=== PATIENT | male | born 2000 ===

== ENCOUNTER 2020-01-12 22:41 | Inpatient (IN) | payer SELFPAY ==
[2020-01-13] MEDS ORDERED: Ondansetron PF 4 MG/2 ML Vial IVP PRN (01:49)
[2020-01-13] MEDS ORDERED: Morphine 4 MG/ML VIAL SLOW IVP PRN (01:49)
[2020-01-13 01:50] VITALS: BMI 20.6
[2020-01-13] MEDS: Sodium Chloride 0.9% 1,000 ML IV SCH ×2 (02:14→10:10)
[2020-01-13] MEDS: Piperacillin/Tazobactam 3.375 GM in Sodium Chloride 0.9% 100 ML IVPB SCH ×2 (06:30→12:00)
[2020-01-13] MEDS ORDERED: Glycopyrrolate 0.2 MG/ML 5 ML SYRINGE ONE (10:31)
[2020-01-13] MEDS ORDERED: Lidocaine 1% PF 5 ML VIAL ONE (10:31)
[2020-01-13] MEDS ORDERED: Ondansetron PF 4 MG/2 ML Vial ONE (10:31)
[2020-01-13] MEDS ORDERED: Rocuronium Bromide 10 MG/ML (10ML VIAL) ONE (10:31)
[2020-01-13] MEDS ORDERED: Ketorolac Tromethamine 30 MG/ML VIAL ONE (10:31)
[2020-01-13] MEDS ORDERED: Dexamethasone 20 MG/5 ML VIAL ONE (10:31)
[2020-01-13] MEDS ORDERED: Succinylcholine Chloride 20 MG/ML 10 ml SYRINGE FS ONE (10:31)
[2020-01-13] MEDS ORDERED: PROPOFOL 200 MG/20 ML VIAL ONE (10:31)
[2020-01-13] MEDS ORDERED: Fentanyl 100 MCG/2 ML VIAL ONE (11:00)
[2020-01-13] MEDS ORDERED: HYDROmorphone 0.5 MG/0.5 ML SYRINGE ONE (11:00)
[2020-01-13] MEDS ORDERED: Bupivacaine 0.25% HCL 30 ML VIAL ONE (11:04)
[2020-01-13] MEDS ORDERED: EPINEPHrine 1 MG/ML AMP ONE (11:04)
--- NOTE | 2020-01-13 11:14 | HP ---
CHIEF COMPLAINT: Right lower quadrant abdominal pain. HISTORY OF PRESENT ILLNESS: The patient is a 19-year-old male, with a 24-hour history of right lower quadrant pain associated with nausea. No vomiting. No fever. CT scan showed appendicitis. PAST MEDICAL HISTORY: Otherwise, healthy. PAST SURGICAL HISTORY: He has had a previous knee surgery on the right side. MEDICATIONS: No medications. ALLERGIES: NO KNOWN DRUG ALLERGIES. SOCIAL HISTORY: He is a student. No tobacco or alcohol. FAMILY HISTORY: Noncontributory. PHYSICAL EXAMINATION: GENERAL: Well-developed, well-nourished male, in no apparent distress. HEENT: Unremarkable. LUNGS: Clear. HEART: Regular rate and rhythm. ABDOMEN: Soft. He is tender in the right lower quadrant. DIAGNOSTIC DATA: CT scan shows 2 appendicoliths with swelling of the appendix. His white blood cell count is 14, hemoglobin 14, hematocrit 45, and platelet count 220. Electrolytes are fine. ASSESSMENT: Acute appendicitis. PLAN: Laparoscopic appendectomy. CONSENT: I have discussed planned procedure as well as risk of bleeding, infection, injury to bowel, injury to bladder, need to open. He understands and gives informed consent. Job ID: [id number]
[2020-01-13] MEDS ORDERED: Piperacillin/Tazobactam 3.375 GM VIAL ONE (11:15)
[2020-01-13] MEDS ORDERED: Sodium Chloride 0.9% 100 ML ONE (11:15)
[2020-01-13] MEDS ORDERED: Promethazine HCl 25 MG/ML VIAL SLOW IVP PRN (12:28)
[2020-01-13] MEDS ORDERED: Meperidine HCl/PF 25 MG/ML VIAL SLOW IVP PRN (12:28)
[2020-01-13] MEDS ORDERED: HYDROmorphone 2 MG/ML VIAL SLOW IVP PRN (12:28)
[2020-01-13] MEDS ORDERED: Ondansetron HCl/PF 4 MG/2 ML Vial IVP PRN (12:28)
[2020-01-13] MEDS ORDERED: Meperidine HCl/PF 25 MG/ML VIAL ONE (12:57)
[2020-01-13 13:18] VITALS: BP 129/73; TEMP 97.7
--- NOTE | 2020-01-13 14:18 | OP ---
DATE OF PROCEDURE: 01/13/2020 PREOPERATIVE DIAGNOSIS: Acute appendicitis. PROCEDURE PERFORMED: Laparoscopic appendectomy. INDICATIONS FOR PROCEDURE: This is a 19-year-old male with 24-hour history of right lower quadrant pain. CT showed appendicitis. FINDINGS: Acute suppurative nonperforated appendicitis. DESCRIPTION OF PROCEDURE: After informed consent was obtained, the patient was taken to the operating room, given general endotracheal anesthesia, placed in the supine position. Abdomen was prepped and draped in usual fashion. Local anesthesia was infiltrated subcutaneously and deep subumbilical incision was performed. Subcu was divided sharply. The fascia was grasped. Two stay sutures of 0 Vicryl were placed in each side of midline. Midline incised. Digital palpation revealed no local adhesions. A blunt 12-mm trocar was inserted. Pneumoperitoneum was created to a pressure of 15 mmHg. 0-degree laparoscope was inserted under direct vision. Two 5-mm ports were placed, one suprapubic and one right lateral abdomen. The appendix was found. The mesoappendix was divided with a LigaSure. The base of the appendix was divided with a linear 45-mm white load stapler, was placed in an endosac, and removed from the abdomen in an endosac. Hemostasis was assured. Trocars and retractors were removed. The fascia was closed with interrupted 0 Vicryl sutures. Skin was closed with interrupted 4-0 Rapide. Dermabond was applied. The patient tolerated the procedure well and transferred to Recovery in good condition. Sponge and needle count verified correct x2. Job ID: [id number]
== END 2020-01-13 15:00 | disposition home or self-care (01) | DRG 343 ==
LOC: OBSVTOIN 01-13 00:34 → SURG A 01-13 00:34
PROVIDERS: ADMIT Surgery; ATTEND Surgery
PROC: 0DTJ4ZZ Resection of Appendix, Percutaneous Endoscopic Approach (ICD-10-PCS; principal; 2020-01-13)
DX: K35.80 Unspecified acute appendicitis (principal)
CPT/HCPCS: 88304; J0171; J1100; J1170; J1885; J2001; J2175; J2270; J2405; J2543; J2704; J3010; J3490; S0020